=== PATIENT | female | born 1990 | race Caucasian/White ===

== ENCOUNTER 2016-09-27 12:31 | Emergency (ER) | payer OTHER ==
[~2016-09-27] VITALS: Ht 157.5 cm; Wt 56.7 kg
[~2016-09-27 12:31] MED LIST: FER325 PO; MONT10TA21 PO; ONDA4TAB14 PO
[2016-09-27 12:32] VITALS: Ht 157.5 cm; Wt 56.7 kg
[2016-09-27 13:17] LABS: URINE BLOOD (Dip) POC 2+ (NEGATIVE)
[2016-09-27] MEDS ORDERED: NITR-58 PO (14:03)
[2016-09-27] MEDS ORDERED: PHEN-537 PO (14:03)
[2016-09-27 14:06] LABS: URINE BLOOD (Dip) POC 1+ (NEGATIVE)
--- NOTE | 2016-09-27 14:28 | ERD ---
ER Documentation Chief Complaint Date/Time DATE: 09/27/16 TIME: 14:23 Chief Complaint DYSURIA X 3 DAYS HPI 26-year-old female patient with a past medical history of anemia and asthma presents to the ED complaining of dysuria that started 3 days ago. Reports that it irwin when she urinates. States that the pain is worse when she is laying down. Denies any abdominal pain, nausea, vomiting, diarrhea, constipation, shortness of breath, cough, fever. Patient states that her last menses was on September 05, 2016. Denies any vaginal bleeding or vaginal discharge. States that she is sexually active with 1 partner. Denies being concerned about STDs. ROS All systems reviewed and are negative except as per history of present illness. Medications Home Meds Active Scripts Phenazopyridine Hcl* (Pyridium*) 100 Mg Tab, 100 MG PO TID Y for URINARY PAIN, # 8 TAB Prov:CAITLIN SRINIVASAN PA-C 09/27/16 Nitrofurantoin Monohyd Macrocr* (Macrobid*) 100 Mg Capsr, 100 MG PO BID for 7 Days, CAP Prov:CAITLIN SRINIVASAN PA-C 09/27/16 Ondansetron (Ondansetron Odt) 4 Mg Tab.rapdis, 4 MG PO Q6H Y for NAUSEA AND/OR VOMITING, #10 TAB Prov:ANDRIY LEVI 03/15/16 Reported Medications Montelukast Sodium* (Singulair*) 10 Mg Tablet, 10 MG PO QHS, #30 TAB 03/15/16 Ferrous Sulfate* (Ferrous Sulfate*) 325 Mg Tabec, 325 MG PO DAILY, TAB 03/15/16 Allergies Allergies: Coded Allergies: No Known Allergy (Unverified , 03/15/16) PMhx/Soc History of Surgery: No Anesthesia Reaction: No Hx Neurological Disorder: No Hx Respiratory Disorders: Yes (asthma ) Hx Cardiac Disorders: No Hx Psychiatric Problems: No Hx Miscellaneous Medical Probl: Yes (ANEMIA) Hx Alcohol Use: No Hx Substance Use: No Hx Tobacco Use: No Physical Exam Vitals Vital Signs Date Time Temp Pulse Resp B/P Pulse Ox O2 Delivery O2 Flow Rate FiO2 09/27/16 12:32 98.1 77 18 130/63 99 Physical Exam Const: [id number], well-nourished. In no acute distress. Head: Atraumatic, normocephalic Eyes: Normal Conjunctiva without injection. No purulent discharge. ENT: Normal external ear, nose. Moist oropharynx without tonsillar exudates. Non -erythematous pharynx. Uvula midline. No drooling. No trismus. Neck: No cervical midline tenderness. Full range of motion. No meningismus. No cervical lymphadenopathy. No JVD. Resp: Clear to auscultation bilaterally. No wheezing, rhonchi, rales, or crackles. No accessory muscle use. No retractions. Cardio: Regular rate and rhythm. No murmurs, rubs or gallops. Abd: Soft, nontender, non distended. Normal bowel sounds. No palpable masses. No rebound tenderness. No guarding. Negative McBurney's point. Negative psoas sign. Negative obturator sign. Skin: No petechiae or rashes Back: No midline tenderness. No CVA tenderness. Ext: No cyanosis, or edema. Neur: Awake and alert. Normal gait. Normal coordination. Psych: Normal Mood and Affect Results 24 hrs Laboratory Tests Test 09/27/16 13:18 09/27/16 14:08 Bedside Urine pH (LAB) 7.0 7.0 Bedside Urine Protein (LAB) Trace Negative Bedside Urine Glucose (UA) Negative Negative Bedside Urine Ketones (LAB) Negative Negative Bedside Urine Blood 2+ 1+ Bedside Urine Nitrite (LAB) Negative Negative Bedside Urine Leukocyte Esterase (L 1+ Trace Procedures/MDM 26-year-old female patient with no significant past medical history presents the ED complaining of dysuria that started 3 days ago. Patient is afebrile nontoxic appearing. Patient has normal vital signs. A urine dip showed trace proteinuria, 1+ ketonuria, 1+ leukocyte esterase. Patient likely has a urinary tract infection. Patient is appropriate for outpatient antibiotics and Pyridium. Urine is negative. Low suspicion gastritis, GERD, peptic ulcer disease, cholecystitis, choledocholithiasis, cholangitis, pancreatitis, appendicitis, bowel obstruction, ileus, volvulus, nephrolithiasis, pyelonephritis, hepatitis, perforated viscus, diverticulitis, abdominal hernia, acute abdomen, mesenteric ischemia or other emergent conditions. Discharge medications: Pyridium, Macrobid Follow up with primary care physician in 1-2 days for referral to managing editor. Instructed patient to return to the ED sooner for any worsening symptoms. Patient's questions were answered. Patient understood and agreed with discharge plan. Patient discharged stable. Departure Diagnosis: Primary Impression: Urinary tract infection Urinary tract infection type: site unspecified Hematuria presence: without hematuria Qualified Code: N39.0 - Urinary tract infection without hematuria, site unspecified Condition: Stable Patient Instructions: Urinary Tract Infections in Women Referrals: [facility] YOU HAVE RECEIVED A MEDICAL SCREENING EXAM AND THE RESULTS INDICATE THAT YOU DO NOT HAVE A CONDITION THAT REQUIRES URGENT TREATMENT IN THE EMERGENCY DEPARTMENT. FURTHER EVALUATION AND TREATMENT OF YOUR CONDITION CAN WAIT UNTIL YOU ARE SEEN IN YOUR DOCTORS OFFICE WITHIN THE NEXT 1-2 DAYS. IT IS YOUR RESPONSIBILITY TO MAKE AN APPOINTMENT FOR FOLOW-UP CARE. IF YOU HAVE A PRIMARY DOCTOR --you should call your primary doctor and schedule an appointment IF YOU DO NOT HAVE A PRIMARY DOCTOR YOU CAN CALL OUR PHYSICIAN REFERRAL HOTLINE AT IF YOU CAN NOT AFFORD TO SEE A PHYSICIAN YOU CAN CHOSE FROM THE FOLLOWING [facility] [address] [facility] [address] [facility] [address] [facility] [address] [facility] [address] [facility]. [facility]. [address] [facility]. [facility] YOU HAVE RECEIVED A MEDICAL SCREENING EXAM AND THE RESULTS INDICATE THAT YOU DO NOT HAVE A CONDITION THAT REQUIRES URGENT TREATMENT IN THE EMERGENCY DEPARTMENT. FURTHER EVALUATION AND TREATMENT OF YOUR CONDITION CAN WAIT UNTIL YOU ARE SEEN IN YOUR DOCTORS OFFICE WITHIN THE NEXT 1-2 DAYS. IT IS YOUR RESPONSIBILITY TO MAKE AN APPOINTMENT FOR FOLOW-UP CARE. IF YOU HAVE A PRIMARY DOCTOR --you should call your primary doctor and schedule and appointment IF YOU DO NOT HAVE A PRIMARY DOCTOR YOU CAN CALL OUR PHYSICIAN REFERRAL HOTLINE AT . IF YOU CAN NOT AFFORD TO SEE A PHYSICIAN YOU CAN CHOSE FROM THE FOLLOWING [facility], [facility] INSTITUTIONS: [facility] [address] [place] [address] [facility] [address] [place] [address] [facility] [address] [place] [address] [facility] URGENT CARE/SPECIALTIES Additional Instructions: Call your primary care doctor TOMORROW for an appointment during the next 2-3 days.See the doctor sooner or return here if your condition worsens before your appointment time. CAITLIN SRINIVASAN PA-C September 27, 2016 14:28
== END 2016-09-27 14:37 | disposition home or self-care (01) ==
LOC: FTE 12:31
DX: N39.0 Urinary tract infection, site not specified (principal); J45.909 Unspecified asthma, uncomplicated
CPT/HCPCS: 81003; 99283

== ENCOUNTER 2017-05-05 17:50 | Emergency (ER) | payer OTHER ==
[~2017-05-05] VITALS: Ht 157.5 cm; Wt 60.9 kg
[~2017-05-05 17:50] MED LIST changes: +NITR-58 PO; +PHEN-537 PO
[2017-05-05 17:54] VITALS: Ht 157.5 cm; Wt 60.9 kg
[2017-05-05] MEDS ORDERED: IBUPROFEN 800 MG TAB PO ONE (19:30)
[2017-05-05] MEDS ORDERED: PRED20TA PO (20:21)
[2017-05-05] MEDS ORDERED: IBUP800T25 PO (20:21)
[2017-05-05] MEDS ORDERED: ALBU18HF INHALATION (20:21)
--- NOTE | 2017-05-05 20:23 | RADRPT ---
PROCEDURE: XR Chest. CLINICAL INDICATION: Chest pain. TECHNIQUE: Single frontal view of the chest was obtained COMPARISON: None FINDINGS: The heart and mediastinum are within normal limits. The lungs are clear. There is no pleural effusion or pneumothorax. The osseous structures are unremarkable. IMPRESSION: 1. No acute cardiopulmonary disease. RPTAT:AAJJ Physician Neela Date Time Electronically viewed and signed by Luz Johnson Physician on 05/05/2017 20:23 QL/
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
== END 2017-05-05 20:31 | disposition home or self-care (01) ==
LOC: FTE 17:50
DX: M94.0 Chondrocostal junction syndrome [Tietze] (principal); J45.909 Unspecified asthma, uncomplicated
CPT/HCPCS: 71010; 93005; Z7502; Z7610